=== PATIENT | male | born 1990 | race Caucasian/White ===

== ENCOUNTER 2018-05-20 19:41 | Emergency (ER) | payer MEDICAID ==
[~2018-05-20] VITALS: Ht 177.8 cm; Wt 60.0 kg
[~2018-05-20 19:41] MED LIST: ALBU6.7H3 IH; EPIN0.3A3 IM; IBUP-1984 PO; NO HOME MEDS
[2018-05-20 20:53] VITALS: BP 114/75
[2018-05-20] MEDS ORDERED: AZIT-63 PO (21:54)
[2018-05-20] MEDS ORDERED: BENZ-16 PO (21:54)
== END 2018-05-20 22:08 | disposition home or self-care (01) ==
LOC: ER 19:42
DX: J06.9 Acute upper respiratory infection, unspecified (principal); F17.200 Nicotine dependence, unspecified, uncomplicated; F15.90 Other stimulant use, unspecified, uncomplicated; F12.90 Cannabis use, unspecified, uncomplicated; Z79.2 Long term (current) use of antibiotics; Z79.899 Other long term (current) drug therapy
CPT/HCPCS: 99283

== ENCOUNTER 2018-06-06 16:48 | Emergency (ER) | payer MEDICAID ==
[~2018-06-06] VITALS: Ht 177.8 cm; Wt 68.0 kg
[~2018-06-06 16:48] MED LIST changes: +AZIT-63 PO; +BENZ-16 PO
[2018-06-06 17:09] VITALS: BP 128/66
[2018-06-06] MEDS: triamcinolone acetonide 40mg/ml inj IM ONE (18:01)
== END 2018-06-06 18:30 | disposition home or self-care (01) ==
LOC: ER 16:48
DX: L23.7 Allergic contact dermatitis due to plants, except food (principal); F12.90 Cannabis use, unspecified, uncomplicated; F15.90 Other stimulant use, unspecified, uncomplicated; Z79.899 Other long term (current) drug therapy
CPT/HCPCS: 96372; 99283; J3301

== ENCOUNTER 2018-06-29 06:16 | Emergency (ER) | payer MEDICAID ==
[~2018-06-29] VITALS: Ht 177.8 cm; Wt 68.2 kg
[~2018-06-29 06:16] MED LIST changes: -AZIT-63 PO; -BENZ-16 PO
[2018-06-29] MEDS ORDERED: AZIT-63 PO (07:15)
[2018-06-29 07:25] VITALS: BP 136/70
== END 2018-06-29 07:27 | disposition home or self-care (01) ==
LOC: ER 06:16
DX: R55 Syncope and collapse (principal); J06.9 Acute upper respiratory infection, unspecified; F12.90 Cannabis use, unspecified, uncomplicated; F15.90 Other stimulant use, unspecified, uncomplicated; Z79.899 Other long term (current) drug therapy
CPT/HCPCS: 93005; 99284

== ENCOUNTER 2018-12-28 07:16 | Emergency (ER) | payer MEDICAID ==
[~2018-12-28] VITALS: Ht 177.8 cm; Wt 67.7 kg
[2018-12-28] MEDS ORDERED: SULF1TAB49 PO (08:36)
[2018-12-28 08:42] VITALS: BP 114/75
== END 2018-12-28 08:44 | disposition home or self-care (01) ==
LOC: ER 07:18
DX: M79.641 Pain in right hand (principal); R23.4 Changes in skin texture; F17.200 Nicotine dependence, unspecified, uncomplicated; F15.90 Other stimulant use, unspecified, uncomplicated; Z79.2 Long term (current) use of antibiotics; Z79.899 Other long term (current) drug therapy
CPT/HCPCS: 73120; 99283

== ENCOUNTER 2019-01-11 07:35 | Emergency (ER) | payer MEDICAID ==
[~2019-01-11] VITALS: Ht 177.8 cm; Wt 68.2 kg
[2019-01-11] MEDS ORDERED: PRED20TA PO (07:42)
[2019-01-11] MEDS ORDERED: dexamethasone 4mg tablet PO ONE (07:45)
[2019-01-11 07:55] VITALS: BP 137/77
== END 2019-01-11 07:58 | disposition home or self-care (01) ==
LOC: ER 07:36
DX: L23.7 Allergic contact dermatitis due to plants, except food (principal); F12.90 Cannabis use, unspecified, uncomplicated; F15.90 Other stimulant use, unspecified, uncomplicated; Z79.899 Other long term (current) drug therapy
CPT/HCPCS: 99283; J8540

== ENCOUNTER 2019-12-29 14:57 | Emergency (ER) | payer MEDICAID ==
[~2019-12-29] VITALS: Ht 177.8 cm; Wt 77.3 kg
[~2019-12-29 14:57] MED LIST changes: +CEPH500C5 PO
[2019-12-29 15:00] VITALS: BP 111/64
[2019-12-29] MEDS ORDERED: DOXYCYCLINE 100MG CAPSULE PO STA (15:13)
[2019-12-29] MEDS ORDERED: TETanus/Pertussis (Acell)/Diphther VAC/PF (Tdap-Adult) 0.5ml syringe IMVAC ONE (15:15)
[2019-12-29] MEDS ORDERED: DOXY100C76 PO (15:15)
[2019-12-29] MEDS ORDERED: ketorolac trometh. 30mg/ml inj. IM ONE (15:15)
== END 2019-12-29 15:40 | disposition home or self-care (01) ==
LOC: ER 14:58
DX: S90.415A Abrasion, left lesser toe(s), initial encounter (principal); L03.116 Cellulitis of left lower limb; F12.90 Cannabis use, unspecified, uncomplicated; F15.90 Other stimulant use, unspecified, uncomplicated; Z87.891 Personal history of nicotine dependence; Z59.0 Homelessness; Z79.2 Long term (current) use of antibiotics; Z79.899 Other long term (current) drug therapy; W16.612A Jumping or diving into natural body of water striking water surface causing other injury, initial encounter; Y93.89 Activity, other specified; Y92.89 Other specified places as the place of occurrence of the external cause; Y99.8 Other external cause status
CPT/HCPCS: 90471; 90715; 96372; 99284; J1885

== ENCOUNTER 2022-10-02 20:37 | Emergency (ER) | payer MEDICAID ==
[~2022-10-02] VITALS: Ht 177.8 cm; Wt 68.1 kg
[~2022-10-02 20:37] MED LIST changes: -CEPH500C5 PO
[2022-10-02 20:41] VITALS: BP 161/92
[2022-10-02] MEDS ORDERED: ketorolac trometh inj. 60 MG/2 ML VIAL IM ONE (21:35)
[2022-10-02] MEDS ORDERED: IBUP-1986 PO (22:04)
== END 2022-10-02 22:39 | disposition home or self-care (01) ==
LOC: ER 20:37
DX: S96.911A Strain of unspecified muscle and tendon at ankle and foot level, right foot, initial encounter (principal); F17.200 Nicotine dependence, unspecified, uncomplicated; F12.90 Cannabis use, unspecified, uncomplicated; F15.90 Other stimulant use, unspecified, uncomplicated; Z59.00 Homelessness unspecified; Z79.899 Other long term (current) drug therapy; X58.XXXA Exposure to other specified factors, initial encounter; Y93.89 Activity, other specified; Y92.89 Other specified places as the place of occurrence of the external cause; Y99.8 Other external cause status
CPT/HCPCS: 73610; 73630; 96372; 99284; J1885; L4360

== ENCOUNTER 2023-08-09 10:59 | Emergency (ER) | payer MEDICAID ==
[~2023-08-09] VITALS: Ht 180.3 cm; Wt 68.7 kg
[~2023-08-09 10:59] MED LIST changes: +IBUP-1986 PO
[2023-08-09 11:15] VITALS: BP 115/76; PULSE 64; RESP 18; TEMP 98.1; O2SAT 99
[2023-08-09 11:53] LABS: BASOPHILS % (AUTO) 0.2 % (0-1); EOSINOPHILS # (AUTO) 0.1 X10'3 (0-0.9); EOSINOPHILS % (AUTO) 0.7 % (0-6); HEMATOCRIT 47.2 % (42.0-52.0); HEMOGLOBIN 15.8 g/dl (14.0-17.9); LYMPHOCYTES # (AUTO) 2.5 X10'3 (1.1-4.8); LYMPHOCYTES % (AUTO) 27.2 % (21-51); MEAN CORPUSCULAR HEMOGLOBIN 31.7 PG (27.0-31.0); MEAN CORPUSCULAR HGB CONC 33.4 g/dL (33.0-36.5); MEAN PLATELET VOLUME 7.1 FL (7.4-10.4); MONOCYTES # (AUTO) 0.8 X10'3 (0-0.9); MONOCYTES % (AUTO) 8.2 % (2-12); NEUTROPHILS # (AUTO) 5.8 X10'3 (1.8-7.7); NEUTROPHILS % (AUTO) 63.7 % (42-75); PLATELET COUNT 237 X10'3 (140-440); RED BLOOD COUNT 4.97 X10'6 (4.70-6.10); RED CELL DISTRIBUTION WIDTH 13.5 % (11.5-14.5); WHITE BLOOD COUNT 9.2 X10'3 (4.5-11.0)
[2023-08-09 11:59] LABS: ALANINE AMINOTRANSFERASE 35 U/L (12-78); ALBUMIN/GLOBULIN RATIO 1.2 (1.1-1.5); ALKALINE PHOSPHATASE 81 IU/L (46-116); ANION GAP 7 (8-16); ASPARTATE AMINO TRANSFERASE 18 U/L (10-37); BILIRUBIN,TOTAL 0.4 MG/DL (0.1-1.0); BLOOD UREA NITROGEN 8 MG/DL (7-18); BUN/CREATININE RATIO 8.5 (10.0-20.0); CHLORIDE 105 MMOL/L (99-107); CREATININE 0.94 MG/DL (0.60-1.10); GLUCOSE 98 MG/DL (70-104); LIPASE 28 U/L (16-77); POTASSIUM 3.9 MMOL/L (3.5-5.1); SODIUM 138 MMOL/L (135-145); TOTAL CARBON DIOXIDE 26.4 MMOL/L (24-32); TOTAL PROTEIN 7.3 G/DL (6.4-8.2); eCRCL 107 ML/MIN; eGFR > 90 ML/MIN
[2023-08-09 13:01] LABS: CLARITY,URINE CLEAR (Clear); COLOR,URINE YELLOW (Yellow); GLUCOSE, URINE NEGATIVE (Neg); KETONES,URINE NEGATIVE (Neg); OCCULT BLOOD,URINE NEGATIVE (Neg); PROTEIN,URINE NEGATIVE (Neg)
[2023-08-09 13:02] LABS: BILIRUBIN,URINE NEGATIVE (Neg); LEUKOCYTE ESTERASE ,URINE NEGATIVE (Neg); NITRITES, URINE NEGATIVE (Neg); UROBILINOGEN,URINE 0.2 E.U/dL (0.2-1.0)
[2023-08-09 13:11] LABS: UA COLLECTION TYPE CLN CATCH MIDSTREAM
[2023-08-09] MEDS ORDERED: IBUP-1984 PO (13:39)
== END 2023-08-09 13:57 | disposition home or self-care (01) ==
LOC: ER 10:59
DX: N43.3 Hydrocele, unspecified (principal); K40.90 Unilateral inguinal hernia, without obstruction or gangrene, not specified as recurrent; F12.90 Cannabis use, unspecified, uncomplicated; F15.90 Other stimulant use, unspecified, uncomplicated; Z59.00 Homelessness unspecified; Z79.899 Other long term (current) drug therapy
CPT/HCPCS: 36415; 76870; 80053; 81003; 83690; 85025; 93976; 99284

== ENCOUNTER 2024-03-20 21:32 | Emergency (ER) | payer MEDICAID ==
[~2024-03-20] VITALS: Ht 177.8 cm; Wt 68.2 kg
[2024-03-20 21:46] VITALS: BP 118/67; PULSE 77; RESP 16; TEMP 97.9; O2SAT 97
[2024-03-21] MEDS: cephalexin 250mg capsule PO ONE (00:46)
[2024-03-21] MEDS ORDERED: CEPH-585 PO (01:12)
== END 2024-03-21 01:38 | disposition home or self-care (01) ==
LOC: ER 21:32
DX: S62.522B Displaced fracture of distal phalanx of left thumb, initial encounter for open fracture (principal); F12.90 Cannabis use, unspecified, uncomplicated; F15.90 Other stimulant use, unspecified, uncomplicated; Z79.899 Other long term (current) drug therapy; Z79.1 Long term (current) use of non-steroidal anti-inflammatories (NSAID); Z79.2 Long term (current) use of antibiotics; Z59.00 Homelessness unspecified; X58.XXXA Exposure to other specified factors, initial encounter; Y93.89 Activity, other specified; Y92.89 Other specified places as the place of occurrence of the external cause; Y99.8 Other external cause status
CPT/HCPCS: 73140; 99283; A6449

== ENCOUNTER 2024-03-30 00:30 | Emergency (ER) | payer MEDICAID ==
[~2024-03-30] VITALS: Ht 177.8 cm; Wt 71.5 kg
[~2024-03-30 00:30] MED LIST changes: +CEPH-585 PO
[2024-03-30 00:57] VITALS: TEMP 98.5
[2024-03-30] MEDS: proparacaine 0.5% ophthalmic drops 15ml EACHEYE ONE (02:12)
[2024-03-30] MEDS: ibuprofen tablet 400 MG TABLET PO ONE (02:12)
[2024-03-30] MEDS: ofloxacin 0.33% 5ml ophthalmic drops EACHEYE SCH (04:40)
[2024-03-30 05:03] VITALS: BP 111/63; PULSE 67; RESP 18; O2SAT 96
[2024-04-02] MEDS ORDERED: prednisoLONE acetate 1% ophth susp 5ml EACHEYE SCH (08:00)
== END 2024-03-30 05:05 | disposition home or self-care (01) ==
LOC: ER 00:30
DX: H57.13 Ocular pain, bilateral (principal); H53.8 Other visual disturbances; F20.9 Schizophrenia, unspecified; F12.90 Cannabis use, unspecified, uncomplicated; F15.90 Other stimulant use, unspecified, uncomplicated; Z59.00 Homelessness unspecified
CPT/HCPCS: 99284

== ENCOUNTER 2024-11-10 16:30 | Emergency (ER) | payer MEDICAID ==
[~2024-11-10] VITALS: Ht 175.3 cm; Wt 71.2 kg
[2024-11-10] MEDS: LIDOcaine 1% W/epiNEPHrine 1:200,000 10ml vial IJ STA (16:50)
[2024-11-10] MEDS: LIDOcaine 1% W/epiNEPHrine 1:100,000 20ml vial IJ STA (16:50)
[2024-11-10 17:40] VITALS: BP 130/82; PULSE 78; RESP 17; TEMP 98.6; O2SAT 100
== END 2024-11-10 17:29 | disposition home or self-care (01) ==
LOC: ER 16:30
DX: S61.214A Laceration without foreign body of right ring finger without damage to nail, initial encounter (principal); S61.216A Laceration without foreign body of right little finger without damage to nail, initial encounter; F12.90 Cannabis use, unspecified, uncomplicated; F15.90 Other stimulant use, unspecified, uncomplicated; Z59.00 Homelessness unspecified; Z79.899 Other long term (current) drug therapy; Z79.1 Long term (current) use of non-steroidal anti-inflammatories (NSAID); W25.XXXA Contact with sharp glass, initial encounter; Y93.89 Activity, other specified; Y92.89 Other specified places as the place of occurrence of the external cause; Y99.8 Other external cause status
CPT/HCPCS: 12001; 99282; J7030; A6258; A6449